=== PATIENT | female | born 1965 | race Caucasian/White ===

== ENCOUNTER 2018-08-06 08:27 | Emergency (ER) | payer OTHER ==
[~2018-08-06] VITALS: Ht 160 cm; Wt 72.1 kg
[2018-08-06 08:34] VITALS: BP 118/82
[2018-08-06] MEDS ORDERED: DIPH,PERTUSS(ACELL),TET VAC/PF 0.5 ML IM-VACC ONE ×2 (09:00→09:14)
--- NOTE | 2018-08-06 09:06 | NUR ---
PATIENT PRESENTS TO ED TODAY FOR SUPERFICIAL LAC TO RT HAND, DUE TO ACCIDENT AT WORK TODAY AT 0600. XRAY COMPLETED, AWAITING RESULTS. NADN, CALL LIGHT WITHIN REACH.
[2018-08-06] MEDS ORDERED: METO25TA35 PO (09:07)
[2018-08-06] MEDS ORDERED: AMIT50TA PO (09:07)
--- NOTE | 2018-08-06 09:20 | NUR ---
RESULTS BACK, CHART UP FOR RECHECK.
[2018-08-06] MEDS ORDERED: BACITRACIN ZINC OINT 500U/GM, 0.9 GM ONE (09:38)
--- NOTE | 2018-08-06 09:48 | NUR ---
Patient/Caregiver given discharge instructions and they have confirmed that they understand the instructions. Patient ambulatory with steady gait.
== END 2018-08-06 09:49 | disposition home or self-care (01) ==
LOC: ED 09:43
DX: S60.221A Contusion of right hand, initial encounter (principal); W23.0XXA Caught, crushed, jammed, or pinched between moving objects, initial encounter; Y93.89 Activity, other specified; Y92.69 Other specified industrial and construction area as the place of occurrence of the external cause; Y99.0 Civilian activity done for income or pay
CPT/HCPCS: 90471; 90715